=== PATIENT | female | born 1985 | race Two or more races ===

== ENCOUNTER 2020-01-25 08:11 | Emergency (ER) | payer SELFPAY ==
[~2020-01-25] VITALS: Ht 170.2 cm; Wt 75.0 kg
--- NOTE | 2020-01-25 08:25 | NUR ---
Melissa COREY at bedside to evaluate pt. Pt c/o intermittent upper abd pain x2 weeks with nausea but no vomiting. Pt denies dysuria or fever. Pt placed in gown and positioned for comfort in bed. Continuous oxygen and BP monitors applied, all safety measures observed.
[2020-01-25] MEDS ORDERED: KETOROLAC 30 MG/1 ML IM ONE (08:30)
[2020-01-25] MEDS ORDERED: KETOROLAC 30 MG/1 ML ONE (08:31)
--- NOTE | 2020-01-25 08:36 | NUR ---
Pt ambulatory to bathroom and back to bed without difficulty. Urine sample obtained, labeled at bedside, sent to lab. Pt medicated for 9/10 LUQ abd pain per APR. technician preventative medicine at bedside to collect blood. Pt denies other needs.
--- NOTE | 2020-01-25 08:41 | NUR ---
Pt to [place] via [facility].
[2020-01-25 08:52] VITALS: BP 155/84
[2020-01-25 09:00] LABS: ALANINE AMINOTRANSFERASE 27 U/L (12-78); ALBUMIN 4.3 g/dL (3.4-5.0); ANION GAP 7 mmol/L (5-15); CALCIUM 8.5 mg/dL (8.5-10.1); CHLORIDE 104 mmol/L (98-107)
[2020-01-25 09:05] LABS: ALKALINE PHOSPHATASE 80 U/L (45-117); BASOPHILS % (AUTO) 1 % (0-1); BILIRUBIN,TOTAL 0.3 mg/dL (0.2-1.0); EOSINOPHILS % (AUTO) 4 % (1-7); LYMPHOCYTES % (AUTO) 32 % (22-44); MEAN CORPUSCULAR HGB CONC 34.8 g/dL (32.4-35.8); MEAN PLATELET VOLUME 7.7 fL (7.4-10.4); MONOCYTES % (AUTO) 3 % (2-9); NEUTROPHILS % (AUTO) 61 % (42-75); PLATELET COUNT 337 x10^3/uL (130-400); RED BLOOD COUNT 4.44 x10^6/uL (3.82-5.3); RED CELL DISTRIBUTION WIDTH 13.6 % (9.6-15.2); TOTAL PROTEIN 8.4 g/dL (6.4-8.2)
[2020-01-25 09:09] LABS: MD NO
--- NOTE | 2020-01-25 09:14 | NUR ---
Pt back from [place]. Pt reports pain now 3/10 after meds. Pt states "I feel way better." Pt resting in bed talking on the phone, CLAUDETTE, denies other needs.
[2020-01-25 09:18] LABS: MICROSCOPIC AUTO
== END 2020-01-25 09:59 | disposition home or self-care (01) ==
LOC: ED 09:14
DX: K80.20 Calculus of gallbladder without cholecystitis without obstruction (principal); R10.13 Epigastric pain
CPT/HCPCS: 36415; 76700; 80053; 81001; 83690; 84703; 85025; 87086; 87147; 96372; 99284; J1885